=== PATIENT | female | born 2000 | race Two or more races ===

== ENCOUNTER 2021-04-16 20:46 | Emergency (ER) | payer OTHER ==
[~2021-04-16] VITALS: Ht 167.6 cm; Wt 56.7 kg
== END 2021-04-17 01:29 | disposition home or self-care (01) ==
LOC: ER 20:46
DX: S09.8XXA Other specified injuries of head, initial encounter (principal); W22.09XA Striking against other stationary object, initial encounter; Y92.89 Other specified places as the place of occurrence of the external cause

== ENCOUNTER 2021-09-09 14:03 | Emergency (ER) | payer OTHER ==
[~2021-09-09] VITALS: Ht 167.6 cm; Wt 59.0 kg
[2021-09-09] MEDS ORDERED: PROZAC40 MG PO (14:09)
[2021-09-09] MEDS ORDERED: SPRINTEC 28 DA1 EACH PO (14:09)
[2021-09-09] MEDS ORDERED: PEPCID AC20 MG PO (17:36)
[2021-09-09] MEDS ORDERED: CARAFATE1 GM PO (17:36)
== END 2021-09-09 18:01 | disposition home or self-care (01) ==
LOC: ER 14:03
DX: K29.70 Gastritis, unspecified, without bleeding (principal); R10.11 Right upper quadrant pain